=== PATIENT | male | born 1950 | race African-American/Black ===

== ENCOUNTER 2017-04-08 17:19 | Inpatient (IN) | payer MEDICARE, MEDICAID ==
[~2017-04-08] VITALS: Ht 188 cm; Wt 87.1 kg
[~2017-04-08 17:19] MED LIST: CARDURA; COZAAR; HYDROCHLOROTHIAZIDE
[2017-04-08] MEDS ORDERED: NITROGLYCERIN 0.4MG TABLET SL SL PRN (18:00)
[2017-04-08 18:11] LABS: BASOPHILS % 0.6 % (0.0-2.0); CHLORIDE 108 mEq/L (98-107); EOSINOPHILS % 5.4 % (0.0-5.0); HEMATOCRIT. 41.8 % (42.0-52.0); HEMOGLOBIN. 14.1 g/dL (14.0-18.0); LYMPHOCYTES % 42.1 % (20.0-50.0); MEAN CORPUSCULAR HEMOGLOBIN 27.9 pg (28.0-32.0); MEAN CORPUSCULAR VOLUME 82.9 fL (80.0-94.0); MEAN PLATELET VOLUME 8.7 fl (7.4-10.4); MONOCYTES % 10.7 % (2.0-8.0); NEUTROPHILS % 41.2 % (40.0-76.0); PLATELET 187 x1000/uL (130-400); RED BLOOD CELL COUNT 5.04 mill/uL (4.7-6.1); RED CELL DISTRIBUTION WIDTH 13.5 % (11.6-14.6)
[2017-04-08 18:12] LABS: INR 1.1; PROTHROMBIN TIME 11.1 sec
[2017-04-08 18:21] LABS: CARBON DIOXIDE 30 mEq/L (21-32)
[2017-04-08 18:23] LABS: TROPONIN I 0.11 ng/mL (0.00-0.04)
[2017-04-08] MEDS ORDERED: ALBUTEROL (0.5%) 2.5MG/0.5ML NEB HHN ONE (18:45)
[2017-04-08] MEDS ORDERED: ENOXAPARIN 100MG/ML SYR SUBCUT ONE (19:00)
[2017-04-08 22:00] VITALS: BP 149/96
[2017-04-08 22:28] VITALS: BP 149/96
[2017-04-08] MEDS ORDERED: DOXY100C2 PO (23:24)
[2017-04-08] MEDS ORDERED: BENA40TA66 PO (23:24)
[2017-04-08] MEDS ORDERED: ASPI-1159 PO (23:24)
[2017-04-08] MEDS ORDERED: AMLO10TA4 PO (23:24)
[2017-04-09] VITALS: BP 126/82
[2017-04-09] MEDS ORDERED: IPRATROPIUM/ALBUTEROL 0.5-3(2.5)MG/3ML NEB HHN PRN (00:15)
[2017-04-09] MEDS ORDERED: TEMAZEPAM 15MG CAPSULE PO PRN (00:15)
[2017-04-09] MEDS ORDERED: ACETAMINOPHEN 325MG TABLET PO PRN (00:15)
[2017-04-09] MEDS ORDERED: ASPIRIN 81MG TABLET PO ONE (00:15)
[2017-04-09] MEDS ORDERED: ASPIRIN 81MG EC TABLET PO ONE (01:00)
[2017-04-09 02:36] LABS: CREATINE KINASE MB FRACTION 4.5 ng/mL (0.5-3.6); TROPONIN I 0.11 ng/mL (0.00-0.04)
[2017-04-09 04:00] VITALS: BP 129/85
[2017-04-09] MEDS: NITROGLYCERIN OINT 1GM/INCH UDPKT TD SCH ×3 (05:52→18:00)
[2017-04-09 06:28] LABS: BASOPHILS % 0.8 % (0.0-2.0); EOSINOPHILS % 5.4 % (0.0-5.0); HEMATOCRIT. 41.4 % (42.0-52.0); HEMOGLOBIN. 13.9 g/dL (14.0-18.0); MEAN CORPUSCULAR HEMOGLOBIN 27.6 pg (28.0-32.0); MEAN CORPUSCULAR VOLUME 82.3 fL (80.0-94.0); MEAN PLATELET VOLUME 8.9 fl (7.4-10.4); MONOCYTES % 13.1 % (2.0-8.0); NEUTROPHILS % 38.7 % (40.0-76.0); PLATELET 177 x1000/uL (130-400); RED BLOOD CELL COUNT 5.03 mill/uL (4.7-6.1); RED CELL DISTRIBUTION WIDTH 13.7 % (11.6-14.6)
[2017-04-09 07:11] LABS: CARBON DIOXIDE 26 mEq/L (21-32); CHLORIDE 110 mEq/L (98-107); HDL CHOLESTEROL 43 mg/dL (40-59); LDL CHOLESTEROL 108 mg/dL (5-100)
[2017-04-09] MEDS: OMEPRAZOLE 20MG CAPSULE EXTENDED RELEASE PO SCH (07:40)
[2017-04-09 08:00] VITALS: BP 125/87
[2017-04-09] MEDS: DOXYCYCLINE HYCLATE 100MG CAPSULE PO SCH ×2 (09:15→17:13)
[2017-04-09] MEDS: ASPIRIN 81MG EC TABLET PO SCH (09:15)
[2017-04-09] MEDS: BENAZEPRIL 20MG TABLET PO SCH (09:22)
[2017-04-09] MEDS: AMLODIPINE 10MG TABLET PO SCH (09:22)
[2017-04-09 10:11] LABS: CREATINE KINASE MB FRACTION 3.6 ng/mL (0.5-3.6); TROPONIN I 0.09 ng/mL (0.00-0.04)
[2017-04-09 12:00] VITALS: BP 145/86
[2017-04-09] MEDS ORDERED: CLONIDINE 0.2MG TABLET PO PRN ×2 (13:45)
[2017-04-09] MEDS ORDERED: POTASSIUM CHLORIDE 20MEQ TABLET SR PO SCH (14:00)
[2017-04-09] MEDS ORDERED: Methadone PO (14:05)
[2017-04-09 16:00] VITALS: BP 130/78
[2017-04-09 16:12] LABS: *AMPHETAMINES SCREEN URINE NEGATIVE (NEGATIVE); *BARBITURATES SCREEN URINE NEGATIVE (NEGATIVE); *BENZODIAZEPINES SCREEN URINE NEGATIVE (NEGATIVE); *COCAINE SCREEN URINE NEGATIVE (NEGATIVE); CANNABINOID URINE SCREEN NEGATIVE (NEGATIVE); METHADONE URINE SCREEN NEGATIVE (NEGATIVE); OPIATES URINE SCREEN NEGATIVE (NEGATIVE); PHENCYCLIDINE URINE SCREEN NEGATIVE (NEGATIVE)
[2017-04-09 19:15] LABS: CREATINE KINASE MB FRACTION 3.9 ng/mL (0.5-3.6)
[2017-04-09 20:00] VITALS: BP 123/75
[2017-04-10] VITALS: BP 125/75
[2017-04-10 04:00] VITALS: BP 123/71
[2017-04-10] MEDS: NITROGLYCERIN OINT 1GM/INCH UDPKT TD SCH ×3 (05:41→11:35)
[2017-04-10 06:39] LABS: BASOPHILS % 0.7 % (0.0-2.0); EOSINOPHILS % 5.4 % (0.0-5.0); HEMATOCRIT. 43.1 % (42.0-52.0); HEMOGLOBIN. 14.4 g/dL (14.0-18.0); LYMPHOCYTES % 39.7 % (20.0-50.0); MEAN CORPUSCULAR HEMOGLOBIN 27.6 pg (28.0-32.0); MEAN CORPUSCULAR VOLUME 82.7 fL (80.0-94.0); MONOCYTES % 12.6 % (2.0-8.0); NEUTROPHILS % 41.6 % (40.0-76.0); PLATELET 176 x1000/uL (130-400); RED BLOOD CELL COUNT 5.22 mill/uL (4.7-6.1); RED CELL DISTRIBUTION WIDTH 13.7 % (11.6-14.6)
[2017-04-10 07:11] LABS: CARBON DIOXIDE 25 mEq/L (21-32); CHLORIDE 108 mEq/L (98-107)
[2017-04-10 07:12] LABS: TROPONIN I 0.09 ng/mL (0.00-0.04)
[2017-04-10 07:16] LABS: HDL CHOLESTEROL 38 mg/dL (40-59); LDL CHOLESTEROL 106 mg/dL (5-100)
[2017-04-10 08:00] VITALS: BP 120/79
[2017-04-10] MEDS: BENAZEPRIL 20MG TABLET PO SCH (09:00)
[2017-04-10] MEDS ORDERED: ENOXAPARIN 40MG/0.4ML SYR SUBCUT SCH (09:00)
[2017-04-10] MEDS: OMEPRAZOLE 20MG CAPSULE EXTENDED RELEASE PO SCH (10:02)
[2017-04-10] MEDS: ASPIRIN 81MG EC TABLET PO SCH (10:02)
[2017-04-10] MEDS: AMLODIPINE 10MG TABLET PO SCH (10:02)
[2017-04-10] MEDS: DOXYCYCLINE HYCLATE 100MG CAPSULE PO SCH (10:02)
[2017-04-10 12:00] VITALS: BP 138/90
[2017-04-10 13:39] VITALS: BP 138/90
== END 2017-04-10 14:10 | disposition home or self-care (01) | DRG 206 ==
LOC: ER 17:19 → 7WST 18:53 → ENRESERV 21:16
PROVIDERS: ADMIT Internal Medicine; ATTEND Internal Medicine
DX: M94.0 Chondrocostal junction syndrome [Tietze] (principal); I11.9 Hypertensive heart disease without heart failure; N40.0 Benign prostatic hyperplasia without lower urinary tract symptoms; R00.1 Bradycardia, unspecified; E87.6 Hypokalemia; D72.819 Decreased white blood cell count, unspecified; E78.5 Hyperlipidemia, unspecified; Z79.899 Other long term (current) drug therapy
CPT/HCPCS: 36415; 71010; 78452; 80048; 80053; 80061; 80305; 82550; 82553; 83735; 83880; 84439; 84443; 84484; 85025; 85379; 85610; 93005; 93017; 93306; 96372; 99285; A9500; J1650

== ENCOUNTER 2017-05-02 22:16 | Emergency (ER) | payer MEDICARE, MEDICAID ==
[~2017-05-02] VITALS: Ht 182.9 cm; Wt 88.0 kg
[~2017-05-02 22:16] MED LIST changes: +AMLO10TA4 PO; +ASPI-1159 PO; +BENA40TA66 PO; -CARDURA; -COZAAR; +DOXY100C2 PO; -HYDROCHLOROTHIAZIDE
[2017-05-03] MEDS ORDERED: KETOROLAC 30MG/ML VIAL IV ONE (03:45)
[2017-05-03 06:21] VITALS: BP 163/96
== END 2017-05-03 06:48 | disposition home or self-care (01) ==
LOC: ER 22:16
DX: S16.1XXA Strain of muscle, fascia and tendon at neck level, initial encounter (principal); S39.012A Strain of muscle, fascia and tendon of lower back, initial encounter; I11.9 Hypertensive heart disease without heart failure; I51.9 Heart disease, unspecified; Z79.82 Long term (current) use of aspirin; V89.2XXA Person injured in unspecified motor-vehicle accident, traffic, initial encounter; Y93.89 Activity, other specified; Y92.89 Other specified places as the place of occurrence of the external cause; Y99.8 Other external cause status
CPT/HCPCS: 72040; 72100; 96374; 99284; J1885

== ENCOUNTER 2018-01-28 23:28 | Emergency (ER) | payer MEDICARE, MEDICAID ==
[~2018-01-28] VITALS: Ht 182.9 cm; Wt 93.8 kg
[2018-01-29 00:23] LABS: BASOPHILS % 1.3 % (0.0-2.0); EOSINOPHILS % 3.8 % (0.0-5.0); HEMATOCRIT. 42.9 % (42.0-52.0); HEMOGLOBIN. 14.5 g/dL (14.0-18.0); LYMPHOCYTES % 40.5 % (20.0-50.0); MEAN CORPUSCULAR HEMOGLOBIN 28.2 pg (28.0-32.0); MEAN CORPUSCULAR VOLUME 83.5 fL (80.0-94.0); MEAN PLATELET VOLUME 8.6 fl (7.4-10.4); MONOCYTES % 10.6 % (2.0-8.0); NEUTROPHILS % 43.8 % (40.0-76.0); PLATELET 201 x1000/uL (130-400); RED BLOOD CELL COUNT 5.14 mill/uL (4.7-6.1); RED CELL DISTRIBUTION WIDTH 13.4 % (11.6-14.6)
[2018-01-29] MEDS ORDERED: CYCLOBENZAPRINE 10MG TABLET PO ONE (00:45)
[2018-01-29] MEDS ORDERED: KETOROLAC 60MG/2ML VIAL IM ONE (00:45)
[2018-01-29 00:49] LABS: CHLORIDE 108 mEq/L (98-107)
[2018-01-29 00:50] LABS: CLARITY URINE CLEAR (CLEAR); COLOR URINE YELLOW (YELLOW); KETONES URINE NEGATIVE (NEGATIVE); LEUKOCYTE ESTERASE URINE NEGATIVE (NEGATIVE); NITRITE URINE NEGATIVE (NEGATIVE); OCCULT BLOOD URINE NEGATIVE (NEGATIVE); PROTEIN URINE TRACE (NEGATIVE); SPECIFIC GRAVITY URINE 1.024 (1.005-1.030)
[2018-01-29 01:42] VITALS: BP 132/80
== END 2018-01-29 01:44 | disposition home or self-care (01) ==
LOC: ER 23:28
DX: S39.012A Strain of muscle, fascia and tendon of lower back, initial encounter (principal); I10 Essential (primary) hypertension; R10.9 Unspecified abdominal pain; Z79.82 Long term (current) use of aspirin; X58.XXXA Exposure to other specified factors, initial encounter; Y93.89 Activity, other specified; Y92.89 Other specified places as the place of occurrence of the external cause; Y99.8 Other external cause status
CPT/HCPCS: 36415; 80048; 81003; 85025; 96372; 99284; J1885

== ENCOUNTER 2019-07-13 23:08 | Emergency (ER) | payer MEDICARE, MEDICAID ==
[~2019-07-13] VITALS: Ht 182.9 cm; Wt 88.0 kg
[~2019-07-13 23:08] MED LIST changes: -ASPI-1159 PO; +ASPI-1393 PO
[2019-07-14] MEDS ORDERED: MORPHINE SULFATE 10 MG/ML CPJ IM ONE (00:30)
[2019-07-14] MEDS ORDERED: FAMOTIDINE 20MG TABLET PO ONE (00:30)
[2019-07-14] MEDS ORDERED: MAGNESIUM/ALUMINUM HYDROXIDE/SIMETHICONE 30ML UDC PO ONE (00:30)
[2019-07-14] MEDS ORDERED: KETOROLAC 30MG/ML VIAL IM ONE (00:30)
[2019-07-14 00:45] VITALS: BP 149/74
== END 2019-07-14 01:53 | disposition home or self-care (01) ==
LOC: ER 23:08
DX: R13.10 Dysphagia, unspecified (principal); G89.29 Other chronic pain; M54.5 Low back pain; I10 Essential (primary) hypertension; Z98.890 Other specified postprocedural states
CPT/HCPCS: 96372; 99283; J1885; J2270

== ENCOUNTER 2020-07-11 02:14 | Emergency (ER) | payer MEDICARE, MEDICAID ==
[~2020-07-11] VITALS: Ht 182.9 cm; Wt 91.0 kg
[~2020-07-11 02:14] MED LIST changes: -ASPI-1393 PO; +ASPI-1497 PO
[2020-07-11 03:00] VITALS: BP 141/71
== END 2020-07-11 03:00 | disposition home or self-care (01) ==
LOC: ER 02:14
DX: S80.862A Insect bite (nonvenomous), left lower leg, initial encounter (principal); S80.861A Insect bite (nonvenomous), right lower leg, initial encounter; I10 Essential (primary) hypertension; Z98.890 Other specified postprocedural states; Z79.899 Other long term (current) drug therapy; W57.XXXA Bitten or stung by nonvenomous insect and other nonvenomous arthropods, initial encounter; Y93.89 Activity, other specified; Y92.89 Other specified places as the place of occurrence of the external cause; Y99.8 Other external cause status
CPT/HCPCS: 99281; 99283

== ENCOUNTER 2020-08-14 18:22 | Emergency (ER) | payer MEDICARE, MEDICAID ==
[~2020-08-14] VITALS: Ht 182.9 cm; Wt 88.0 kg
[2020-08-14] MEDS ORDERED: ACETAMINOPHEN WITH CODEINE 300/30MG TABLET PO ONE (23:00)
[2020-08-14 23:04] VITALS: BP 147/82
== END 2020-08-14 23:05 | disposition home or self-care (01) ==
LOC: ER 18:22
DX: R68.84 Jaw pain (principal); I10 Essential (primary) hypertension
CPT/HCPCS: 70110; 99283

== ENCOUNTER 2022-07-06 10:23 | Emergency (ER) | payer MEDICARE, MEDICAID ==
[~2022-07-06] VITALS: Ht 182.9 cm; Wt 91.0 kg
[~2022-07-06 10:23] MED LIST changes: -DOXY100C2 PO; +DOXY100C5 PO
[2022-07-06] MEDS ORDERED: IBUP-2028 MT (11:28)
[2022-07-06] MEDS ORDERED: METH-653 MT (11:28)
[2022-07-06] MEDS: IBUPROFEN 400MG TABLET PO ONE ×2 (11:46→11:49)
[2022-07-06] MEDS: METHOCARBAMOL 500MG TABLET PO ONE ×2 (11:46→12:01)
[2022-07-06] MEDS: ACETAMINOPHEN 325MG TABLET PO ONE ×2 (11:47→11:50)
[2022-07-06 11:49] VITALS: BP 147/73
[2022-07-06] MEDS ORDERED: METHOCARBAMOL 500MG TABLET PO ONE (12:00)
== END 2022-07-06 12:21 | disposition home or self-care (01) ==
LOC: ER 10:23
DX: M54.2 Cervicalgia (principal); I10 Essential (primary) hypertension; Z98.890 Other specified postprocedural states
CPT/HCPCS: 99283

== ENCOUNTER 2022-11-06 14:49 | Emergency (ER) | payer MEDICARE, MEDICAID ==
[~2022-11-06] VITALS: Ht 182.9 cm; Wt 91.0 kg
[~2022-11-06 14:49] MED LIST changes: +IBUP-2028 MT; +METH-653 MT
[2022-11-06 15:00] VITALS: BP 147/96
[2022-11-06 17:50] LABS: CLARITY URINE TURBID (CLEAR); COLOR URINE RED (YELLOW); KETONES URINE 1+ (NEGATIVE); LEUKOCYTE ESTERASE URINE 3+ (NEGATIVE); NITRITE URINE NEGATIVE (NEGATIVE); OCCULT BLOOD URINE 3+ (NEGATIVE); PH URINE 6.5 (4.5-8.0); PROTEIN URINE 1+ (NEGATIVE); SPECIFIC GRAVITY URINE 1.016 (1.005-1.030); UROBILINOGEN URINE 0.2 E.U./dL (0.2-1.0)
[2022-11-06] MEDS ORDERED: CEPH500C2 PO ×3 (19:02→19:18)
== END 2022-11-06 19:21 | disposition home or self-care (01) ==
LOC: ER 14:49
DX: N39.0 Urinary tract infection, site not specified (principal); N40.0 Benign prostatic hyperplasia without lower urinary tract symptoms; I10 Essential (primary) hypertension; Z79.82 Long term (current) use of aspirin; Z98.890 Other specified postprocedural states
CPT/HCPCS: 81003; 87077; 87186; 99283